=== PATIENT | male | born 1975 | race Caucasian/White ===

== ENCOUNTER 2020-03-21 13:39 | Emergency (ER) | payer OTHER ==
[~2020-03-21] VITALS: Ht 175.3 cm; Wt 78.0 kg
[2020-03-21 13:44] VITALS: BP 122/78
--- NOTE | 2020-03-21 13:45 | NUR ---
Patient transferred to [facility] via wheelchair by triage nurse.
--- NOTE | 2020-03-21 14:13 | NUR ---
Patient returned from CT scan.
[2020-03-21] MEDS ORDERED: HYDROcodone/APAP 5/325 MG 1 TAB TAB PO ONE (14:35)
[2020-03-21 15:00] VITALS: BP 131/87
--- NOTE | 2020-03-21 15:01 | NUR ---
COMPLAINED OF HEADACHE 5/10, [id number]/ ACETAMINOPHEN 325MG 1 TAB PO ORDERED GIVEN
--- NOTE | 2020-03-21 15:41 | NUR ---
MINIMAL TOLERABLE HEADACHE CLAIMED, RE-ASSESSED BY DR. CRAWLEY, CLEARED FROM CERVICAL COLLAR AND REMOVED., MADE DISCHARGE ORDER AND WAITING AT HOSPITAL LOBBY
--- NOTE | 2020-03-21 15:50 | NUR ---
DISCHARGED IN STABLE CONDITION AMBULATORY
--- NOTE | 2020-03-21 16:20 | NUR ---
Patient discharged with v/s stable. Written and verbal after care instructions about post concussion syndrome given and explained. Patient alert, oriented and verbalized understanding of instructions. Ambulatory with steady gait. All questions addressed prior to discharge. ID band removed. Patient advised to follow up with PMD. Rx of ibuprofen given. Patient educated on indication of medication including possible reaction and side effects. Opportunity to ask questions provided and answered.
[2020-03-21 16:25] VITALS: BP 130/85
== END 2020-03-21 16:20 | disposition home or self-care (01) ==
LOC: MED 13:39
DX: S09.90XA Unspecified injury of head, initial encounter (principal); M54.2 Cervicalgia; R11.0 Nausea; W19.XXXA Unspecified fall, initial encounter; Y93.89 Activity, other specified; Y92.828 Other wilderness area as the place of occurrence of the external cause; Y99.8 Other external cause status
CPT/HCPCS: 70450; 71250; 72125; 99285